=== PATIENT | male | born 1995 | race Asian ===

== ENCOUNTER 2020-02-05 10:44 | Emergency (ER) | payer OTHER ==
[~2020-02-05] VITALS: Ht 175.3 cm; Wt 95.5 kg
[2020-02-05 11:36] LABS: BASOPHILS % (AUTO) 0.5 % (0.0-2.0); EOSINOPHILS % (AUTO) 5.7 % (1.0-6.0); HEMOGLOBIN 18.7 g/dL (13.5-17.5); LYMPHOCYTES % (AUTO) 26.6 % (22.0-44.0); MEAN CORPUSCULAR HEMOGLOBIN 24.8 pg (26.0-34.0); MEAN CORPUSCULAR HGB CONC 32.9 G/dL (31.0-37.0); MEAN CORPUSCULAR VOLUME 75 fL (80-100); MONOCYTES # (AUTO) 0.6 K/uL (0.1-1.0); MONOCYTES % (AUTO) 8.2 % (2.0-9.0); NEUTROPHILS # (AUTO) 4.5 K/uL (1.8-7.7); PLATELET COUNT (AUTO) 186 K/uL (150-450); RED BLOOD CELL COUNT(AUTO) 7.55 MIL/uL (4.50-5.90); RED CELL DISTRIBUTION WIDTH 14.5 % (11.5-14.5)
[2020-02-05 11:39] LABS: HEMATOCRIT 56.9 % (41-53)
[2020-02-05 11:46] LABS: ANION GAP 8 mmol/L (8-16); CALCIUM, TOTAL 9.8 mg/dL (8.8-10.5); CARBON DIOXIDE 27 mmol/L (22-29); CHLORIDE 99 mmol/L (98-107); GLOMERULAR FILTR. RATE CALC > 60 mL/min (>60); GLUCOSE,RANDOM 87 mg/dL (70-110); POTASSIUM 5.6 mmol/L (3.5-5.1); SODIUM SERUM 134 mmol/L (136-145); UREA NITROGEN, BLOOD 16 mg/dL (7-18)
[2020-02-05 11:54] LABS: ALANINE AMINOTRANSFERASE 46 U/L (12-78); ALBUMIN 4.2 g/dL (3.4-5.0); ALKALINE PHOSPHATASE 68 U/L (46-116); BILIRUBIN,TOTAL 0.8 mg/dL (0.1-1.0)
[2020-02-05 12:10] LABS: APPEARANCE,URINE CLEAR (CLEAR); BILIRUBIN,URINE NEGATIVE (NEGATIVE); GLUCOSE, URINE (UA) NEGATIVE (NEGATIVE); KETONES,URINE NEGATIVE (NEGATIVE); LEUKOCYTE ESTERASE ,URINE NEGATIVE (NEGATIVE); NITRATE,URINE NEGATIVE (NEGATIVE); OCCULT BLOOD,URINE NEGATIVE (NEGATIVE); PH,URINE 6.5 (5.0-8.0); PROTEIN,URINE SEE CONFIRM (NEGATIVE); UROBILINOGEN,URINE 0.2 mg/dL (<=1.0)
[2020-02-05 12:12] LABS: B-TYPE NATRIURETIC PEPTIDE < 5 pg/mL (0-100)
[2020-02-05 12:12] LABS: SULFOSALICYLIC ACID,URINE 3+ (Negative)
[2020-02-05 12:15] LABS: BACTERIA,URINE None Seen /HPF (None Seen); RBC,URINE None Seen /HPF (0-2); WBC,URINE None Seen /HPF (0-5)
[2020-02-05 12:21] LABS: ASPARTATE AMINOTRANSFERASE 58 U/L (15-37)
[2020-02-05 12:42] LABS: D-DIMER 0.21 mg/L FEU (0.00-0.50)
[2020-02-05 12:53] LABS: PROTHROMBIN TIME 10.5 SEC (9.4-11.6)
[2020-02-05 13:14] VITALS: BP 130/82
== END 2020-02-05 13:17 | disposition home or self-care (01) ==
LOC: EMS 10:45
DX: R07.89 Other chest pain (principal); R06.02 Shortness of breath; J45.909 Unspecified asthma, uncomplicated
CPT/HCPCS: 85379; 93005; 36415-L1; 36415-TC; 71045-TC

== ENCOUNTER 2020-06-15 04:08 | Emergency (ER) | payer SELFPAY ==
[~2020-06-15] VITALS: Ht 172.7 cm; Wt 95.5 kg
[2020-06-15 04:40] VITALS: BP 125/81
[2020-06-15] MEDS ORDERED: IBUPROFEN 600 MG TABLET PO ONE (04:45)
[2020-06-15] MEDS ORDERED: DEXAMETHASONE SOD PHOS 4 MG/ML 5 ML VIAL IM ONE (04:45)
[2020-06-15 06:08] LABS: COVID AG,FIA SOURCE NASOPHARYNGEAL
[2020-06-15 07:22] LABS: RAPID GROUP A STREP NEGATIVE (NEGATIVE)
== END 2020-06-15 05:11 | disposition home or self-care (01) ==
LOC: EMS 04:09
DX: J02.9 Acute pharyngitis, unspecified (principal); J45.909 Unspecified asthma, uncomplicated; Z20.822 Contact with and (suspected) exposure to COVID-19
CPT/HCPCS: 87426; 87430; 96372; 99283; C9803; J1100; U0003